=== PATIENT | male | born 1960 ===

== ENCOUNTER 2017-07-17 17:37 | Emergency (ER) | payer SELFPAY ==
--- NOTE | 2017-07-17 19:39 | C.PDOC ---
History Of Present Illness A 57 y/o male with a Hx of HTN presents to the ED with a complaint of a headache; sent by the clinic, the patient reported to have intermittent dizziness for the past two months. Patient reports to not have taken any medication for HTN. Denies fever, chills, any other past medical problems, and any other physical pain at this time. Chief Complaint (Nursing): High Blood Pressure History Per: Patient History/Exam Limitations: no limitations Onset/Duration Of Symptoms: Days (on/off headaches and dizziness for two months. ) Current Symptoms Are (Timing): Still Present Associated Symptoms: Headache Recent travel outside of the [place]: No Past Medical History Vital Signs: Last Vital Signs Temp 97.8 F 07/17/17 17:52 Pulse 70 07/17/17 21:15 Resp 18 07/17/17 21:15 BP 159/105 H 07/17/17 21:15 Pulse Ox 100 07/17/17 21:35 - Medical History PMH: No Chronic Diseases Surgical History: No Surg Hx Family History: States: Unknown Family Hx - Social History Hx Alcohol Use: No Hx Substance Use: No - Immunization History Hx Tetanus Toxoid Vaccination: No Hx Influenza Vaccination: No Hx Pneumococcal Vaccination: No Review Of Systems Constitutional: Negative for: Fever, Chills Cardiovascular: Negative for: Chest Pain Respiratory: Negative for: Shortness of Breath Gastrointestinal: Negative for: Nausea, Vomiting, Diarrhea Neurological: Positive for: Headache, Dizziness Physical Exam - Physical Exam Appears: Well, Non-toxic Skin: Normal Color, Warm, Dry Head: Atraumatic, Normacephalic Oral Mucosa: Moist Chest: Symmetrical Cardiovascular: Rhythm Regular, No Murmur, Other (BP 162/90.) Respiratory: Normal Breath Sounds, No Rales, No Rhonchi, No Wheezing Gastrointestinal/Abdominal: Soft, No Tenderness Extremity: Normal ROM (x4) Neurological/Psych: Oriented x3, Normal Speech, Normal Cognition ED Course And Treatment - Laboratory Results Result Diagrams: 07/17/17 20:07 07/17/17 19:39 ECG: Interpreted By Me, Viewed By Me ECG Rhythm: Sinus Rhythm ECG Interpretation: Normal, No Acute Changes Interpretation Of ECG: NSR. normal tracings Rate From EC O2 Sat by Pulse Oximetry: 100 (Room air) Pulse Ox Interpretation: Normal - CT Scan/US Head Other Rad Studies (CT/US): Interpreted By Me, Read By Radiologist CT/US Interpretation: IMPRESSION: No acute intracranial abnormality. Progress Note: CT Head, EKG, UA, and blood work ordered; hydrodiuril, microzide , and toradol administered. Disposition Counseled Patient/Family Regarding: Diagnosis - Disposition Referrals: [facility] [Outside] Disposition: HOME/ ROUTINE Disposition Time: 21:32 Condition: STABLE Prescriptions: hydroCHLOROthiazide [Hydrodiuril] 25 mg PO DAILY #14 tab Instructions: Hypertension (ED) Forms: [employer] (Spanish), Gen Discharge Inst Upper Sorbian Print Language: VIETNAMESE - POA Present On Arrival: None - Clinical Impression Clinical Impression: Abnormal blood pressure, Hypertension - Scribe Statement The provider has reviewed the documentation as recorded by the Scribe Mary Jo Westfall All medical record entries made by the Scribe were at my direction and personally dictated by me. I have reviewed the chart and agree that the record accurately reflects my personal performance of the history, physical exam, medical decision making, and the department course for this patient. I have also personally directed, reviewed, and agree with the discharge instructions and disposition.
[2017-07-17 19:59] LABS: BASO # 0.1 K/uL (0.0-0.2); BASO % 0.7 % (0.0-2.0); EOS # 0.2 K/uL (0.0-0.7); EOS % 2.1 % (0.0-4.0); HEMATOCRIT 45.8 % (35.0-51.0); LYMPH # 2.9 K/uL (1.0-4.3); LYMPH % 28.2 % (20.0-40.0); MEAN CELL VOLUME 91.1 fL (80.0-94.0); MEAN CORPUSCULAR HEMOGLOBIN 31.3 pg (27.0-31.0); MEAN CORPUSCULAR HGB CONC 34.4 g/dL (33.0-37.0); MEAN PLATELET VOLUME 8.9 fL (7.2-11.7); MONO # 0.8 K/uL (0.0-0.8); MONO % 7.4 % (0.0-10.0); NRBC % 0.1 % (0.0-2.0); RED CELL DISTRIBUTION WIDTH 13.6 % (11.5-14.5); WHITE BLOOD COUNT 10.3 K/uL (4.8-10.8)
[2017-07-17 20:11] LABS: CHLORIDE 103 mmol/L (98-107)
[2017-07-17 20:12] LABS: POTASSIUM 3.6 mmol/L (3.6-5.2); SODIUM 143 mmol/L (132-148)
[2017-07-17 20:14] LABS: ALB/GLOB RATIO 1.3 (1.0-2.1); AST/SGOT 31 U/L (17-59); BILIRUBIN,TOTAL 0.5 mg/dL (0.2-1.3); CARBON DIOXIDE 27 mmol/L (22-30); GFR AFRICAN-AMERICAN > 60; TOTAL PROTEIN 8.3 g/dL (6.3-8.3)
[2017-07-17 20:15] LABS: ALKALINE PHOSPHATASE 168 U/L (38-126); ALT/SGPT 48 U/L (21-72); BLOOD UREA NITROGEN 12 mg/dL (9-20); CALCIUM 9.5 mg/dl (8.6-10.4); GLUCOSE,RANDOM 75 mg/dL (75-110)
[2017-07-17 20:20] VITALS: PULSE 70
--- NOTE | 2017-07-17 20:39 | CT ---
EXAM: CT Head Without Intravenous Contrast EXAM DATE/TIME: 07/17/2017 7:36 PM CLINICAL HISTORY: 57 years old, male; Signs and symptoms and condition or disease; Headache; Dizziness TECHNIQUE: Axial computed tomography images of the head/brain without intravenous contrast. All CT scans at this facility use one or more dose reduction techniques, viz.: automated exposure control; ma/kV adjustment per patient size (including targeted exams where dose is matched to indication; i.e. head); or iterative reconstruction technique. COMPARISON: There are no prior studies for comparison. FINDINGS: Brain: Ventricles are normal in size and configuration. There is no midline shift. There are no intra-axial or extra-axial mass lesions or areas of hemorrhage. There are no abnormal fluid collections. Snider-white differentiation is maintained. Ventricles: See above. Bones: Cranial vault is intact. Soft tissues: unremarkable Sinuses: There is no acute sinusitis. Ears and mastoids: Middle ears and mastoids are unremarkable Orbits: Orbital contents are unremarkable. IMPRESSION: No acute intracranial abnormality
[2017-07-17 21:23] VITALS: BP 159/105; RESP 18
[2017-07-17 21:35] VITALS: O2SAT 100
[2017-07-17 21:53] VITALS: TEMP 97.9
--- NOTE | 2017-07-20 12:33 | CARD ---
APPROVED REPORT EKG Measurement Heart [id number] <Conclusion> Normal sinus rhythm Normal ECG
== END 2017-07-17 21:54 | disposition home or self-care (01) ==
LOC: C.ER 17:37
DX: I10 Essential (primary) hypertension (principal)
CPT/HCPCS: 70450; 80053; 85025; 96374; 99285; J1885